=== PATIENT | male | born 1995 | race Caucasian/White ===

== ENCOUNTER → 2024-06-05 | Outpatient (CLI) | payer BC ==
--- NOTE | 2024-06-05 16:01 | US ---
EXAMINATION TYPE: US kidneys/renal and bladder DATE OF EXAM: 06/05/2024 COMPARISON: NONE CLINICAL INDICATION: Male, 29 years old with history of R10.9 FLANK PAIN; urgency to urinate, on and off pain x 1 month, slowly subsided TECHNIQUE: Grayscale imaging of the bilateral kidneys and urinary bladder: FINDINGS: EXAM MEASUREMENTS: Right Kidney: 9.7x4.9x5.9 cm Left Kidney: 12.3x6.5x5.4 cm limited exam due to pt body habitus & overlying bowel Right Kidney: Extrarenal pelvis. No hydronephrosis, no solid masses. No calculi. Left Kidney: Retained the lobulations noted most pronounced on the left. No hydronephrosis or m ass. Bladder: wnl Bilateral Jets seen: Yes Increased echotexture to the liver where visualized. IMPRESSION: No evidence for acute process. [facility], , 06/05/2024 3:58 PM
== END | disposition home or self-care (01) ==
LOC: RADUSWWP 15:17
PROVIDERS: ATTEND Family Medicine
DX: R10.9 Unspecified abdominal pain (principal)
CPT/HCPCS: 76770